=== PATIENT | male | born 1975 | race Caucasian/White ===

== ENCOUNTER 2021-12-03 19:36 | Emergency (ER) | payer OTHER ==
[~2021-12-03] VITALS: Ht 177.8 cm; Wt 81.8 kg
[2021-12-03 21:19] LABS: BILIRUBIN,URINE NEGATIVE (NEG); CLARITY,URINE CLEAR; COLOR,URINE YELLOW; NITRITE,URINE NEGATIVE (NEG); PROTEIN,URINE NEGATIVE (NEG-TRACE); UROBILINOGEN,URINE 0.2 mg/dL (0.2 mg/dL)
[2021-12-03 21:25] LABS: BACTERIA,URINE 0 /HPF (0-FEW); RBC,URINE 0 /HPF (0-2); WBC,URINE 0 /HPF (0-4)
[2021-12-03 21:26] LABS: AMPHETAMINE/METHAMPHETAMINE POS (NEG); BARBITURATES NEG (NEG); BENZODIAZEPINES NEG (NEG); CANNABINOIDS POS (NEG); COCAINE NEG (NEG); METHADONE NEG (NEG); OPIATES NEG (NEG); PHENCYCLIDINE NEG (NEG)
--- NOTE | 2021-12-03 22:14 | PHYS DOC ---
Past Medical History Past Surgical History: Other Additional Past Surgical Histo: Unable to obtain information. (KYRA WALTON APRN) Smoking Status: Unknown if ever smoked Alcohol Use: None Additional Information: Unknown Social History Narrative: Unknow drug use (KYRA WALTON APRN) General Adult EDM: Chief Complaint: ALTERED MENTAL STATUS HPI: HPI: Patient is a 46 year old male with unknown medical history presenting to the ED today via EMS to be evaluated for altered mental status. EMS report [facility] called them because they found patient walking on the streets talking to himself. Patient is not answering questions, he is mumbling and talking about things and people that do not exist. Off note patient does not know his name, date of or any other details about himself. Favian Molina is used as a name (KYRA WALTON APRN) Review of Systems: Review of Systems: Constitutional: Unable to obtain due to mentation Respiratory: Unable to obtain due to mentation Cardiovascular: Unable to obtain due to mentation GI: Unable to obtain due to mentation : Unable to obtain due to mentation Musculoskeletal: Unable to obtain due to mentation Integument: Unable to obtain due to mentation Neurologic: EMS reports altered mental status. Psychiatric: Patient mumbling and talking to himself (KYRA WALTON APRN) Heart Score: C/O Chest Pain: N/A Risk Factors: Risk Factors: DM, Current or recent (<one month) smoker, HTN, HLP, family history of CAD, obesity. Risk Scores: Score 0 - 3: 2.5% MACE over next 6 weeks - Discharge Home Score 4 - 6: 20.3% MACE over next 6 weeks - Admit for Clinical Observation Score 7 - 10: 72.7% MACE over next 6 weeks - Early Invasive Strategies (KYRA WALTON APRN) C/O Chest Pain: N/A (CHUCK JOHNSON MD) Allergies: Allergies: Allergies Coded Allergies Type Severity Reaction Last Updated Verified Unable to Assess 12/03/21 No (KYRA WALTON APRN) Physical Exam: PE: Constitutional: Well developed, well nourished, no acute distress, non-toxic appearance. [] HENT: Normocephalic, atraumatic, bilateral external ears normal, oropharynx moist, no oral exudates, nose normal. [] Eyes: PERRLA, EOMI, conjunctiva normal, no discharge. [] Neck: Normal range of motion, no tenderness, supple, no stridor. [] Cardiovascular:Heart rate regular rhythm Lungs & Thorax: Bilateral breath sounds clear to auscultation [] Abdomen: Bowel sounds normal, soft, no tenderness, no masses, no pulsatile masses. [] Skin: Warm, dry, no erythema, no rash. [] Back: No tenderness, no CVA tenderness. [] Extremities: No tenderness, no cyanosis, no clubbing, ROM intact, no edema. [] Neurologic: Alert and oriented X 3, normal motor function, normal sensory function, no focal deficits noted. [] Psychologic: Patient mumbling, talking to himself, having visual hallucinations (KYRA WALTON BAND TEACHER) Current Patient Data: Labs: Laboratory Tests Test 12/03/21 21:05 Urine Collection Type Unknown Urine Color Yellow Urine Clarity Clear Urine pH 7.0 (<5.0-8.0) Urine Specific [place] 1.025 (1.000-1.030) Urine Protein Negative mg/dL (NEG-TRACE) Urine Glucose (UA) Negative mg/dL (NEG) Urine Ketones (Stick) Negative mg/dL (NEG) Urine Blood Negative (NEG) Urine Nitrite Negative (NEG) Urine Bilirubin Negative (NEG) Urine Urobilinogen Dipstick 0.2 mg/dL (0.2 mg/dL) Urine Leukocyte Esterase Negative (NEG) Urine RBC 0 /HPF (0-2) Urine WBC 0 /HPF (0-4) Urine Bacteria 0 /HPF (0-FEW) Urine Mucus Slight /LPF Urine Opiates Screen Neg (NEG) Urine Methadone Screen Neg (NEG) Urine Barbiturates Neg (NEG) Urine Phencyclidine Screen Neg (NEG) Urine Amphetamine/Methamphetamine Pos (NEG) Urine Benzodiazepines Screen Neg (NEG) Urine Cocaine Screen Neg (NEG) Urine Cannabinoids Screen Pos (NEG) Urine Ethyl Alcohol Neg (NEG) Vital Signs: Vital Signs Date Time Temp Pulse Resp B/P (MAP) Pulse Ox O2 Delivery O2 Flow Rate FiO2 12/03/21 19:50 114 24 142/99 (113) 98 Room Air (KYRA WALTON BAND TEACHER) EKG: EKG: [] (KYRA WALTON APRN) Radiology/Procedures: Radiology/Procedures: [] (KYRA WALTON APRN) Course & Med Decision Making: Course & Med Decision Making Pertinent Labs and Imaging studies reviewed. (See chart for details) This is a 46-year-old male patient with unknown medical history, presented to be evaluated today for altered mental status. Patient was found on the streets by [employer] confused and talking to himself. 22[address] from the pat team communicating with the patient right now by writing, unfortunately everything patient is writing makes no sense. UDS positive for methamphetamine and marijuana use Labs pending Pat team will come tomorrow morning to re-evaluate patient. [address] Gonzalez (KYRA WALTON APRN) Course & Med Decision Making This patient was initially seen by the nurse practitioner last night. Please see her note for details of H&P and HPI. I assumed care 0100. The patient appears to be psychotic. Amphetamine and marijuana positive in urine drug screen. He had refused to the nursing staff to obtain blood work for the majority of the shift, but he was given a dose of oral Ativan and oral Zyprexa, and he eventually calmed down and was able to provide blood. He refuses to allow the nursing staff to swab him for Covid. He has already been assessed by a member of PAT team. He is still not able to provide an identity or date of . He will require inpatient psychiatric hospitalization. He will be reassessed this morning by the PAT team. There is transferred to Dr. Johnson at 0600 for disposition. (JOE GONZALEZ DO) Course & Med Decision Making Patient the patient care shift change, pending PET evaluation. PAT evaluation completed and was then interviewed by state for involuntary status. Pending placement at shift change (CHUCK JOHNSON MD) Course & Med Decision Making No acute events during my shift. Patient still acutely psychotic and responding to internal stimuli, requiring a lot of as needed medication. Still awaiting placement. Risperdal BID orders entered. Transition of care at the end of my shift to Dr. Crain. (SELINA NARAYANAN MD) Course & Med Decision Making Patient has been accepted for transfer by Dr. Becker in [facility] (JACOB CRAIN MD) [place] Disclaimer: [employer] Disclaimer: This electronic medical record was generated, in whole or in part, using a voice recognition dictation system. (KYRA WALTON BAND TEACHER) Departure Departure Impression: Primary Impression: AMS (altered mental status) Qualified Codes: R41.82 - Altered mental status, unspecified Additional Impressions: Methamphetamine use Marijuana use Psychosis Condition: STABLE Referrals: NO PCP (PCP) KYRA WALTON APRN Dec 03, 2021 22:14 JOE GONZALEZ DO Dec 04, 2021 07:08 CHUCK JOHNSON MD Dec 04, 2021 18:17 SELINA NARAYANAN MD Dec 05, 2021 06:03 JACOB CRAIN MD Dec 05, 2021 13:31
[2021-12-04] MEDS ORDERED: OLANZapine 5 MG TABLET PO STA ×2 (01:05→14:57)
[2021-12-04 03:34] LABS: BASO % 0 % (0-3); EOS # 0.1 x10^3/uL (0.0-0.7); EOS % 1 % (0-3); HEMATOCRIT 39.2 % (39.0-53.0); HEMOGLOBIN 12.8 g/dL (13.0-17.5); LYMPH # 1.3 x10^3/uL (1.0-4.8); LYMPH % 19 % (24-48); MEAN CORPUSCULAR HEMOGLOBIN 29 pg (25-35); MEAN CORPUSCULAR HGB CONC 33 g/dL (31-37); MEAN CORPUSCULAR VOLUME 89 fL (79-100); MONO # 0.5 x10^3/uL (0.0-1.1); MONO % 7 % (0-9); NEUT # 4.9 x10^3/uL (1.8-7.7); NEUT % 72 % (31-73); PLATELET COUNT 278 x10^3/uL (140-400); RED BLOOD COUNT 4.42 x10^6/uL (4.30-5.70); RED CELL DISTRIBUTION WIDTH 13.8 % (11.5-14.5); WHITE BLOOD COUNT 6.8 x10^3/uL (4.0-11.0)
[2021-12-04 03:42] LABS: CREATININE 1.2 mg/dL (0.7-1.3); GFR 65.5; POTASSIUM 4.2 mmol/L (3.5-5.1)
[2021-12-04 03:48] LABS: ALBUMIN 3.5 g/dL (3.4-5.0); ALBUMIN/GLOBULIN RATIO 0.9 (1.0-1.7); TOTAL BILIRUBIN 0.5 mg/dL (0.2-1.0); TOTAL PROTEIN 7.5 g/dL (6.4-8.2)
[2021-12-04 03:49] LABS: ACETAMIN < 2 mcg/ml (10-30); ETHANOL < 10 mg/dL (0-10); SALIC 3.2 mg/dL (2.8-20.0)
[2021-12-04] MEDS ORDERED: NOREPINEPHRINE VIAL 8 MG in IV DEXTROSE 5% 250 ML IV ONE (07:15)
[2021-12-04] MEDS ORDERED: AMIODARONE 450 MG in IV DEXTROSE 5% 250 ML IV ONE (07:15)
[2021-12-04] MEDS ORDERED: VASOPRESSIN - VASOSTRICT 20 UNIT in IV DEXTROSE 5% 100ML 100 ML IV ONE (07:15)
[2021-12-05] MEDS ORDERED: risperiDONE 1 MG TABLET. PO SCH (03:45)
[2021-12-05 14:24] VITALS: BP 127/84
== END 2021-12-05 15:09 ==
LOC: ER 19:36 → EDBD 19:36 → ER 12-05 15:09
DX: R41.82 Altered mental status, unspecified (principal); F15.90 Other stimulant use, unspecified, uncomplicated; Z20.822 Contact with and (suspected) exposure to COVID-19; F12.90 Cannabis use, unspecified, uncomplicated; F29 Unspecified psychosis not due to a substance or known physiological condition
CPT/HCPCS: 80053; 80307; 80329; 81001; 85025; 87426; 99283; G0480; U0003